=== PATIENT | female | born 1945 | race Two or more races ===

== ENCOUNTER 2018-03-07 15:35 | Emergency (ER) | payer OTHER ==
[2018-03-07 17:13] VITALS: BP 146/89; PULSE 96; TEMP 99.6; BMI 26.2
[2018-03-07] MEDS ORDERED: KETOROLAC TROMETHAMINE 15 MG/ML VIAL IM ONE (18:07)
[2018-03-07] MEDS ORDERED: KETOROLAC TROMETHAMINE 30 MG/1 ML VIAL ONE (18:13)
[2018-03-07 18:18] LABS: PH,URINE 5.5 (4.5-8); URINE APPEARANCE Clear; URINE BILIRUBIN Negative (NEGATIVE); URINE COLOR Yellow; URINE GLUCOSE (UA) Negative (NEGATIVE); URINE KETONE Negative (NEGATIVE); URINE LEUK ESTERASE Negative (NEGATIVE); URINE NITRITE Negative (NEGATIVE); URINE PROTEIN Negative (NEGATIVE); URINE UROBILINOGEN 0.2 (0.2-1.0)
--- NOTE | 2018-03-07 18:44 | PDOC ---
History of Present Illness <Jackson Walker - Last Filed: 03/07/18 19:43> - History of Present Illness Initial Comments: 03/07/18 18:38 The patient is a 72 year old female, with a significant past medical history of hypertension (nifedipine, carvedilol, and losartan) and hyperlipidemia ( atorvastatin), who presents to the emergency department accompanied by son for complaint of pain to her right knee and right hip. She states she has been experiencing right knee pain since February 10 when she was standing on a step stool to water her hanging plants and jumped down from the step stool. She denies any immediate swelling, popping, clicking, or bruising at the time. She states she rested the knee which alleviated the knee pain, however, reports the pain is now located to her right lateral hip and right posterior buttock. She states the right hip/buttock pain was so much worse today prompting her ED visit. She states she has been ambulating with a knee brace and a mild limp, but denies use of a cane, crutches, or walker. She states she wanted to take two Advil, but did not take them prior to her arrival. She denies numbness or tingling. She denies any trauma to the symptomatic areas. The patient denies chest pain, shortness of breath, headache and dizziness. The patient denies fever, chills, nausea, vomit, diarrhea and constipation. The patient denies dysuria, frequency, urgency and hematuria. Denies LE edema. Denies recent travel or immobility. Allergies: NKDA Social history: denies toxic habits PCP - Dr. Neves <Jolanta Byrd - Last Filed: 03/08/18 14:24> - General Chief Complaint: Pain Stated Complaint: NOT ABLE TO WALK Time Seen by Provider: 03/07/18 17:28 Past History <Jackson Walker - Last Filed: 03/07/18 19:43> - Past Medical History COPD: No HTN: Yes Hypercholesterolemia: Yes - Suicide/Smoking/Psychosocial Hx Smoking History: Never smoked Hx Alcohol Use: No Drug/Substance Use Hx: No Substance Use Type: None <Jolanta Byrd - Last Filed: 03/08/18 14:24> - Past Medical History Allergies/Adverse Reactions: Allergies Allergy/AdvReac Type Severity Reaction Status Date / Time No Known Allergies Allergy Verified 03/07/18 16:05 Home Medications: Ambulatory Orders Atorvastatin Ca [Lipitor] 10 mg PO HS 03/07/18 Carvedilol [Coreg -] 12.5 mg PO BID 03/07/18 Losartan Potassium [Cozaar] 25 mg PO DAILY 03/07/18 Naproxen 250 mg PO BID #14 tablet 03/07/18 Nifedipine ER [Procardia Xl -] 60 mg PO DAILY 03/07/18 Review of Systems - Review of Systems Comments:: 03/07/18 18:40 "GENERAL/CONSTITUTIONAL: No fever or chills. No weakness. HEAD, EYES, EARS, NOSE AND THROAT: No change in vision. No ear pain or discharge. No sore throat. GASTROINTESTINAL: No nausea, vomiting, diarrhea or constipation. GENITOURINARY: No dysuria, frequency, or change in urination. CARDIOVASCULAR: No chest pain or shortness of breath. RESPIRATORY: No cough, wheezing, or hemoptysis. MUSCULOSKELETAL: (+) right knee, hip and buttock pain. No muscle swelling or pain. No neck or back pain. SKIN: No rash NEUROLOGIC: No headache, vertigo, loss of consciousness, or change in strength/ sensation. ENDOCRINE: No increased thirst. No abnormal weight change. HEMATOLOGIC/LYMPHATIC: No anemia, easy bleeding, or history of blood clots. ALLERGIC/IMMUNOLOGIC: No hives or skin allergy." <Jolanta Byrd - Last Filed: 03/08/18 14:24> *Physical Exam - Vital Signs Last Vital Signs Temp Pulse Resp BP Pulse Ox 99.6 F 96 H 16 146/89 100 03/07/18 16:01 03/07/18 16:01 03/07/18 16:01 03/07/18 16:01 03/07/18 16:01 <Jackson Walker - Last Filed: 03/07/18 19:43> - Vital Signs Last Vital Signs Temp Pulse Resp BP Pulse Ox 99.6 F 96 H 16 146/89 100 03/07/18 16:01 03/07/18 16:01 03/07/18 16:01 03/07/18 16:01 03/07/18 16:01 - Physical Exam Comments: 03/07/18 18:41 GENERAL: Awake, alert, and fully oriented, in no acute distress HEAD: No signs of trauma EYES: sclera anicteric, conjunctiva clear LUNGS: Breath sounds equal, clear to auscultation bilaterally. No wheezes, and no crackles HEART: Regular rate and rhythm, normal S1 and S2, no murmurs, rubs or gallops ABDOMEN: Soft, nontender, normoactive bowel sounds. No guarding, no rebound. No masses EXTREMITIES: Normal range of motion, no edema. No clubbing or cyanosis. No cords , erythema, or tenderness. WWP, 2+ peripheral pulses. BACK: No midline spinal tenderness in cervical/thoracic/lumbar region NEUROLOGICAL: Normal speech, cranial nerves intact, 5/5 strength in all 4 extremities, normal sensation to light touch in all 4 extremities, antalgic but steady gait, normal reflexes and tone SKIN: Warm, Dry, normal turgor, no rashes or lesions noted. MUSCULOSKELETAL: (+) mild tenderness to palpation over the right greater trochanter. Right knee has full extension and limited flexion secondary to pain. No swelling or bruising. <Jolanta Byrd - Last Filed: 03/08/18 14:24> ED Treatment Course - ADDITIONAL ORDERS Additional order review: Laboratory Results 03/07/18 18:14 Urine Color Yellow Urine Appearance Clear Urine pH 5.5 Ur Specific [place] 1.015 Urine Protein Negative Urine Glucose (UA) Negative Urine Ketones Negative Urine Blood Trace-lysed H Urine Nitrite Negative Urine Bilirubin Negative Urine Urobilinogen 0.2 Ur Leukocyte Esterase Negative Urine RBC 0-2 Urine WBC 0-2 Ur Epithelial Cells Few Calcium Oxalate Crystal Many Urine Bacteria Few - Medications Given in the ED: ED Medications Discontinued Medications Generic Name Dose Route Start Last Admin Trade Name Freq PRN Reason Stop Dose Admin Ketorolac Tromethamine 30 mg 03/07/18 18:07 03/07/18 18:17 Toradol Injection - IM 03/07/18 18:08 30 mg ONCE ONE Administration <Jackson Walker - Last Filed: 03/07/18 19:43> - ADDITIONAL ORDERS Additional order review: Laboratory Results 03/07/18 18:14 Urine Color Yellow Urine Appearance Clear Urine pH 5.5 Ur Specific [place] 1.015 Urine Protein Negative Urine Glucose (UA) Negative Urine Ketones Negative Urine Blood Trace-lysed H Urine Nitrite Negative Urine Bilirubin Negative Urine Urobilinogen 0.2 Ur Leukocyte Esterase Negative - RADIOLOGY Radiology Studies Ordered: Category Date Time Status FEMUR-RIGHT [RAD] Stat Radiology 03/07/18 18:08 Ordered HIP-RIGHT [RAD] Stat Radiology 03/07/18 18:08 Ordered KNEE 3 POS-RIGHT [RAD] Stat Radiology 03/07/18 18:08 Ordered - Medications Given in the ED: ED Medications Discontinued Medications Generic Name Dose Route Start Last Admin Trade Name Deyvi PRN Reason Stop Dose Admin Ketorolac Tromethamine 30 mg 03/07/18 18:07 03/07/18 18:17 Toradol Injection - IM 03/07/18 18:08 30 mg ONCE ONE Administration <Jolanta Byrd - Last Filed: 03/08/18 14:24> Medical Decision Making - Medical Decision Making 03/07/18 18:44 72yo F presents to the ED with R knee pain since 02/10, now with R hip pain. Temp elevated to 99.6, remaining vitals wnl. Exam with warm, well perfused RLE, 2+ peripheral pulse. +R greater trochanter ttp, possibly referred knee pain. Will give toradol for pain control and check XR to R knee, femur, hip to r/o bony injury. With regards to 99.6 temp, pt has no headache, chills, abd pain, n/ v/d, cough, sore throat, rhinorrhea. +urinary frequency. Will check UA. 03/07/18 19:34 XR with no evidence of fracture. pt given naproxen BID script, ortho fu Pain well controlled Stable for DC home I discussed the physical exam findings, ancillary test results and final diagnoses with the patient. I answered all of the patient's questions. The patient was satisfied with the care received and felt comfortable with the discharge plan and treatment plan. The patient will call their primary care physician within 24 hours to arrange follow-up and will return to the Emergency Department with any new, persistent or worsening symptoms. <Jolanta Byrd - Last Filed: 03/08/18 14:24> *DC/Admit/Observation/Transfer - Discharge Dispostion Decision to Admit order: No <Jackson Walker - Last Filed: 03/07/18 19:43> <Jolanta Byrd - Last Filed: 03/08/18 14:24> Diagnosis at time of Disposition: Hip pain Qualifiers: Laterality: right Qualified Code(s): M25.551 - Pain in right hip - Discharge Dispostion Disposition: HOME Condition at time of disposition: Good - Prescriptions Prescriptions: Naproxen 250 mg PO BID #14 tablet - Referrals Referrals: Fariha Neves [Primary Care Provider] - Brennon Roche MD [Staff Physician] - - Patient Instructions Printed Discharge Instructions: Bursitis, DI for Hip Bursitis Additional Instructions: Ice affected area 20 minutes on 20 minutes off. Use crutches at all times while ambulating to keep weight off affected leg. Take naproxen as prescribed. Tomorrow follow up with Dr. Roche orthopedics. Return to ED for any severe worsening symptoms or for any concerns. - Post Discharge Activity
[2018-03-07 18:48] LABS: CALCIUM OXALATE CRYSTALS MANY /hpf (NONE SEEN); EPI CELLS FEW /HPF; URINE BACTERIA FEW /hpf (NEGATIVE); URINE RBC 0-2 /hpf (0-3); URINE WBC 0-2 (0-5)
== END 2018-03-07 20:01 | disposition home or self-care (01) ==
LOC: FER 15:35
PROC: 3E0233Z Introduction of Anti-inflammatory into Muscle, Percutaneous Approach (ICD-10-PCS; principal; 2018-03-07)
DX: M25.551 Pain in right hip (principal); I10 Essential (primary) hypertension; E78.5 Hyperlipidemia, unspecified
CPT/HCPCS: 73502-TC-RT; 73552-TC-RT-FY; 73562-TC-RT-FY; 81003; 81015; 87086; 99282-25

== ENCOUNTER 2019-02-26 21:12 | Emergency (ER) | payer OTHER ==
[2019-02-26 21:28] VITALS: BP 170/99; PULSE 91; TEMP 98.5; BMI 26.5
--- NOTE | 2019-02-26 21:37 | PDOC ---
Documentation entered by Dorina Ricketts SCRIBE, acting as scribe for Alexsander Fenton MD. Alexsander Fenton MD: This documentation has been prepared by the Jamarcus terry Adrianna, SCRIBE, under my direction and personally reviewed by me in its entirety. I confirm that the documentation accurately reflects all work, treatment, procedures, and medical decision making performed by me. History of Present Illness - General Chief Complaint: Blood Pressure Problem Stated Complaint: HIGH BLOOD PRESSURE - History of Present Illness Initial Comments: The patient is a 73 year old female, with a significant PMH of HTN and HLD, who presents to the ED for evaluation of elevated blood pressure. Patient notes she went on a trip to [place] two weeks ago, which caused her a great deal of anxiety (patient was doing many things she did not want to and only wanted to relax). She notes her blood pressure has been well controlled and has actually been more hypotensive (~80s systolic before she left for her trip). Upon return from her trip, she has been taking her blood pressure medications as prescribed daily, but notes her blood pressure was 180/90 today. Patient endorses feeling anxious, but is otherwise asymptomatic while in the ED. Allergies: NKA, NKDA Surgical History: None reported Social History: Denies EtOH, tobacco, or illicit drug use. Exercises regularly, mindful of diet. PCP: Dr. Neves Past History - Past Medical History Allergies/Adverse Reactions: Allergies Allergy/AdvReac Type Severity Reaction Status Date / Time No Known Drug Allergies Allergy Verified 02/26/19 21:13 Home Medications: Ambulatory Orders Carvedilol [Coreg -] 12.5 mg PO BID 02/26/19 Losartan Potassium 25 mg PO DAILY 02/26/19 Nifedipine [Adalat cc] 60 mg PO BID 02/26/19 COPD: No HTN: Yes Hypercholesterolemia: Yes - Suicide/Smoking/Psychosocial Hx Smoking History: Never smoked Hx Alcohol Use: No Drug/Substance Use Hx: No Substance Use Type: None Review of Systems - Review of Systems Comments:: GENERAL/CONSTITUTIONAL: +Anxious. +Hypertensive. No fever or chills. No weakness. HEAD, EYES, EARS, NOSE AND THROAT: No change in vision. No ear pain or discharge. No sore throat. CARDIOVASCULAR: No chest pain or shortness of breath. RESPIRATORY: No cough, wheezing, or hemoptysis. GASTROINTESTINAL: No nausea, vomiting, diarrhea or constipation. GENITOURINARY: No dysuria, frequency, or change in urination. MUSCULOSKELETAL: No joint or muscle swelling or pain. No neck or back pain. SKIN: No rash NEUROLOGIC: No headache, vertigo, loss of consciousness, or change in strength/ sensation. ENDOCRINE: No increased thirst. No abnormal weight change. HEMATOLOGIC/LYMPHATIC: No anemia, easy bleeding, or history of blood clots. ALLERGIC/IMMUNOLOGIC: No hives or skin allergy. *Physical Exam - Vital Signs Last Vital Signs Temp Pulse Resp BP Pulse Ox 98.5 F 91 H 18 170/99 98 02/26/19 21:12 02/26/19 21:12 02/26/19 21:12 02/26/19 21:12 02/26/19 21:12 - Physical Exam Comments: GENERAL: Awake, alert, and fully oriented, in no acute distress HEAD: No signs of trauma EYES: PERRLA, EOMI, sclera anicteric, conjunctiva clear ENT: Auricles normal inspection, hearing grossly normal, nares patent, oropharynx clear without exudates. Moist mucosa NECK: Normal ROM, supple, no lymphadenopathy, JVD, or masses LUNGS: Breath sounds equal, clear to auscultation bilaterally. No wheezes, and no crackles HEART: Regular rate and rhythm, normal S1 and S2, no murmurs, rubs or gallops ABDOMEN: Soft, nontender, normoactive bowel sounds. No guarding, no rebound. No masses EXTREMITIES: Normal range of motion, no edema. No clubbing or cyanosis. No cords, erythema, or tenderness NEUROLOGICAL: Cranial nerves II through XII grossly intact. Normal speech, normal gait SKIN: Warm, Dry, normal turgor, no rashes or lesions noted. Medical Decision Making - Medical Decision Making 02/27/19 06:46 asymptomatic htn anxiety no emergent mgmt needed pcp fu *DC/Admit/Observation/Transfer Diagnosis at time of Disposition: Asymptomatic hypertension - Discharge Dispostion Disposition: HOME Condition at time of disposition: Stable - Referrals Referrals: Fariha Neves [Primary Care Provider] - - Patient Instructions Printed Discharge Instructions: Relaxation Therapies (Alternative Therapy) - Post Discharge Activity
== END 2019-02-26 21:49 | disposition home or self-care (01) ==
LOC: FER 21:12
DX: I10 Essential (primary) hypertension (principal); E78.5 Hyperlipidemia, unspecified
CPT/HCPCS: 99282-25

== ENCOUNTER 2020-06-20 10:46 | Emergency (ER) | payer OTHER | END 2020-06-20 17:06 | disposition home or self-care (01) | LOC: JVIRT 10:46 | DX: U07.1 COVID-19 (principal) | CPT/HCPCS: C9803; Q3014-GT; U0003 ==

== ENCOUNTER 2021-12-02 15:25 | Emergency (ER) | payer OTHER ==
[2021-12-02 15:40] VITALS: BP 145/85; PULSE 80; TEMP 98.4; BMI 25.6
== END 2021-12-02 16:25 | disposition home or self-care (01) ==
LOC: FER 15:25
DX: L20.9 Atopic dermatitis, unspecified (principal)
CPT/HCPCS: 99281-25

== ENCOUNTER 2022-05-15 09:44 | Emergency (ER) | payer OTHER ==
[2022-05-15 09:57] VITALS: BP 120/72; PULSE 76; RESP 20; TEMP 99; BMI 25.6
== END 2022-05-15 10:54 | disposition home or self-care (01) ==
LOC: FER 09:44
DX: S60.322A Blister (nonthermal) of left thumb, initial encounter (principal); W23.0XXA Caught, crushed, jammed, or pinched between moving objects, initial encounter
CPT/HCPCS: 99282-25